=== PATIENT | female | born 1960 | race Caucasian/White ===

== ENCOUNTER 2018-07-13 13:55 | Emergency (ER) | payer OTHER ==
[2018-07-13] MEDS ORDERED: IBUPROFEN 600 MG TAB PO ONE (14:16)
[2018-07-13] MEDS ORDERED: LIDOCAINE 4%/MENTHOL 1% PATCH TD ONE (14:16)
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
[2018-07-13] MEDS ORDERED: DIAZEPAM 5 MG TAB PO ONE (14:55)
[2018-07-13] MEDS ORDERED: ACETAMINOPHEN 325 MG TAB PO ONE (14:56)
[2018-07-13 15:06] VITALS: BP 175/98
[2018-07-13] MEDS ORDERED: PATCH REMOVAL 1 EA PATCH TD SCH (21:00)
== END 2018-07-13 15:05 | disposition home or self-care (01) ==
DX: S22.31XA Fracture of one rib, right side, initial encounter for closed fracture (principal); J98.11 Atelectasis; E03.9 Hypothyroidism, unspecified; V18.0XXA Pedal cycle driver injured in noncollision transport accident in nontraffic accident, initial encounter; Y92.480 Sidewalk as the place of occurrence of the external cause

== ENCOUNTER → 2018-08-04 | Outpatient (CLI) | payer OTHER | LOC: FIMAGING 11:15 | PROVIDERS: ATTEND Family Medicine | DX: Z12.31 Encounter for screening mammogram for malignant neoplasm of breast (principal) ==

== ENCOUNTER → 2018-08-31 | Outpatient (CLI) | payer OTHER | LOC: FIMAGING 12:54 | PROVIDERS: ATTEND Family Medicine | DX: N60.02 Solitary cyst of left breast (principal) ==